=== PATIENT | male | born 1985 | race Caucasian/White ===

== ENCOUNTER 2017-08-10 00:52 | Emergency (ER) | payer OTHER ==
[~2017-08-10] VITALS: Ht 175.3 cm; Wt 63.5 kg
[~2017-08-10 00:52] MED LIST: VIBRAMYCIN 100100 M2 PO
[2017-08-10] MEDS ORDERED: NOHOMEMEDICATIONS (01:05)
[2017-08-10 02:56] VITALS: BP 130/80
== END 2017-08-10 02:57 | disposition home or self-care (01) ==
LOC: M.ERS 00:52
DX: Z20.2 Contact with and (suspected) exposure to infections with a predominantly sexual mode of transmission (principal)

== ENCOUNTER 2019-05-11 19:53 | Emergency (ER) | payer OTHER ==
[~2019-05-11] VITALS: Ht 177.8 cm; Wt 63.5 kg
[~2019-05-11 19:53] MED LIST changes: +NOHOMEMEDICATIONS
[2019-05-11 20:32] LABS: URINE BILIRUBIN NEGATIVE (Negative); URINE BLOOD TRACE (Negative); URINE CLARITY SL CLOUDY; URINE COLOR YELLOW; URINE GLUCOSE-RANDOM NEGATIVE (Negative); URINE KETONES NEGATIVE (Negative); URINE LEUKOCYTES-REFLEX 1+ (Negative); URINE NITRITE-REFLEX NEGATIVE (Negative); URINE PROTEIN TRACE (Negative); URINE SPECIFIC GRAVITY 1.025 (1.005-1.030); URINE UROBILINOGEN 0.2 E.U./dl (0.2-1.0)
[2019-05-11 20:40] LABS: SQUAMOUS NONE SEEN /LPF (0-3); URINE WBC-REFLEX >25 Many /HPF (0-5); WBC CLUMPS Few (None Seen)
[2019-05-11 20:43] LABS: BACTERIA-REFLEX 1-9 Few /HPF (None Seen); CASTS None Seen /LPF (None Seen); CRYSTALS None Seen /LPF (None Seen); MUCUS 4-6 Moderate strn/LPF (None Seen); URINE RBC 0-2 Rare /HPF (0-2)
[2019-05-11] MEDS ORDERED: DOXYCYCLINE 10100 MG PO (21:11)
[2019-05-11 21:35] VITALS: BP 136/78
== END 2019-05-11 21:35 | disposition home or self-care (01) ==
LOC: M.ERS 19:53
PROVIDERS: Physician Assistant
DX: A56.8 Sexually transmitted chlamydial infection of other sites (principal); A54.9 Gonococcal infection, unspecified; N39.0 Urinary tract infection, site not specified; L02.413 Cutaneous abscess of right upper limb; F17.210 Nicotine dependence, cigarettes, uncomplicated